=== PATIENT | female | born 1940 | race Caucasian/White ===

== ENCOUNTER 2020-03-05 16:50 | Inpatient (IN) | payer MEDICARE, OTHER ==
[~2020-03-05] VITALS: Ht 152.4 cm; Wt 63.2 kg
--- NOTE | 2020-03-05 18:00 | NUR ---
PRODUCTIVE COUGH AND CONGESTION X 1 WEEK. PT AAOX4, VSS. RR EVEN & UNLABORED. DENIES CP, SOB, DIZZINESS, N/V AT THIS TIME. PT SEEN & EVAL'D BY DR. PANDEY. SON @ BS ASSISTING W/ TRANSLATION. PLACED ON REAL ESTATE DIRECTOR, SR. WILL CONT TO MONITOR.
[2020-03-05 18:16] LABS: BASOPHILS % (AUTO) 0.2 % (0.0-2.0); HEMATOCRIT 38 % (33-45); HEMOGLOBIN 12.3 g/dL (11.5-14.8); LYMPHOCYTES # (AUTO) 1.4 /CMM (0.8-4.8); LYMPHOCYTES % (AUTO) 21.6 % (20.0-44.0); MEAN CORPUSCULAR HGB CONC 32 g/dl (31.0-36.0); MEAN CORPUSCULAR VOLUME 94 fL (82-100); MONOCYTES # (AUTO) 0.5 /CMM (0.1-1.30); MONOCYTES % (AUTO) 7.3 % (2.0-12.0); NEUTROPHILS # (AUTO) 4.6 /CMM (1.8-8.9); NEUTROPHILS % (AUTO) 70.9 % (43.0-81.0); PLATELET COUNT (AUTO) 226 /CMM (150-450); RED BLOOD CELL COUNT(AUTO) 4.06 MIL/uL (4.0-5.2); WHITE BLOOD COUNT (AUTO) 6.5 K/uL (4.3-11.0)
[2020-03-05 18:25] LABS: CALCIUM, SERUM 9.2 mg/dL (8.5-10.1); CREATININE 0.8 mg/dL (0.6-1.3); POTASSIUM 4.7 mmol/L (3.5-5.1)
[2020-03-05] MEDS ORDERED: AZITHROMYCIN 500 MG in IV D5W 250 ML IV ONE (18:30)
[2020-03-05] MEDS ORDERED: CEFTRIAXONE 1 G in IV D5W 50 ML IV ONE (18:30)
[2020-03-05] MEDS ORDERED: ESCI20TA PO (18:39)
[2020-03-05] MEDS ORDERED: OMEG1CAP PO (18:39)
[2020-03-05] MEDS ORDERED: ATOR80TA PO (18:39)
[2020-03-05] MEDS ORDERED: OLME20TA23 PO (18:39)
[2020-03-05] MEDS ORDERED: ALEN70TA6 PO (18:39)
[2020-03-05] MEDS ORDERED: LOSA100T31 PO (18:39)
[2020-03-05] MEDS ORDERED: ASPI-1420 PO (18:39)
[2020-03-05] MEDS ORDERED: AMLO2.5T4 PO (18:39)
[2020-03-05] MEDS ORDERED: METF-440 PO (18:39)
--- NOTE | 2020-03-05 19:18 | NUR ---
positive covid result per lab
[2020-03-05] MEDS ORDERED: CEFTRIAXONE 1GM BAG (ER ONLY) 50 ML IV ONE (19:28)
--- NOTE | 2020-03-05 19:38 | NUR ---
MEDICATED PER ERMD ORDER, PT SHEILA WELL.
--- NOTE | 2020-03-05 20:26 | NUR ---
REPORT GIVEN TO SHIVA CRYSTAL FOR ZEYNEP.
[2020-03-05] MEDS ORDERED: HYDROCODONE/APAP 5/325MG TABLET PO PRN (20:30)
[2020-03-05] MEDS ORDERED: MAGNESIUM HYDROXIDE 30 ML UDC PO PRN (20:30)
[2020-03-05] MEDS ORDERED: ZOLPIDEM TARTRATE 5 MG TABLET PO PRN (20:30)
[2020-03-05] MEDS ORDERED: ONDANSETRON HCL/PF 4 MG/2 ML VIAL IVP PRN (20:30)
[2020-03-05] MEDS ORDERED: Z GUARD REMEDY 2 OZ OINT TP PRN (20:30)
[2020-03-05] MEDS ORDERED: MAG HYDROX/AL HYDROX/SIMETH 30 ML UDC PO PRN (20:30)
[2020-03-05] MEDS ORDERED: DEXTROSE 50%-WATER 50 ML DISP.SYRIN IV PRN (20:30)
[2020-03-05 21:12] VITALS: BP 143/59
--- NOTE | 2020-03-05 21:12 | NUR ---
DETAILER NOTES Received patient from ER accompanied by 2 ER staff. Admitted to Tele 203-1 due to COVID 19 under the service of Dr. Faith. Transferred to bed comfortably. Admission routine done. Patient preferred to keep on personal clothing over pt's gown. Pt noted ambulatory with steady gait. With peripheral IV line RAC #20, SL. Pt denies any discomfort at this time. Provided snacks per request. Admission orders noted and carried out. Kept on bed clean, dry and comfortable. Call light within easy reach. On tele monitor with NSR noted. Will continue to monitor accordingly.
[2020-03-05] MEDS: ATORVASTATIN 40 MG TABLET PO SCH (21:56)
[2020-03-05] MEDS: AMLODIPINE BESYLATE 2.5 MG TABLET PO SCH (21:57)
[2020-03-05] MEDS: ASPIRIN EC 81 MG TABLET.DR PO SCH (22:00)
[2020-03-05] MEDS: LOSARTAN POTASSIUM 50 MG TABLET PO SCH (22:01)
[2020-03-05] MEDS: INSULIN REGULAR, HUMAN 100 UNIT/ML 3 ML VIAL SQ PRN (22:05)
[2020-03-05] MEDS: ENOXAPARIN SODIUM 40 MG/0.4 ML DISP.SYRIN SQ SCH (22:06)
[2020-03-05] MEDS: BLOOD SUGAR DIAGNOSTIC 1 EACH STRIP IN SCH (22:06)
[2020-03-06] VITALS: BP 154/74
[2020-03-06 01:04] VITALS: BP 154/74
[2020-03-06 04:00] VITALS: BP 136/66
[2020-03-06 04:25] VITALS: BP 136/66
[2020-03-06] MEDS: BLOOD SUGAR DIAGNOSTIC 1 EACH STRIP IN SCH ×4 (06:46→21:25)
--- NOTE | 2020-03-06 06:51 | NUR ---
RN CLOSING NOTES Pt on bed. No new complaints made. All nursing needs attended. Due meds given as ordered. NSR on tele monitor. Kept on bed clean, dry and comfortable. Call light within easy reach. Endorsed.
--- NOTE | 2020-03-06 07:20 | NUR ---
MS RN NOTES PATIENT IN BED ALERT ORIENTED X 3. NO ACUTE DISTRESS NOTED. BREATHING UNLABORED. NO SOB NOTED. IV ACCESS PATENT AND INTACT, NO REDNESS, NO BLEEDING, NO SWELLING NOTED. SAFETY MEASURES IN PLACE, CALL LIGHT WITHIN REACH. WILL CONTINUE TO MONITOR ACCORDINGLY.
[2020-03-06 07:58] LABS: HEMATOCRIT 36 % (33-45); HEMOGLOBIN 11.8 g/dL (11.5-14.8); LYMPHOCYTES # (AUTO) 1.8 /CMM (0.8-4.8); LYMPHOCYTES % (AUTO) 30.5 % (20.0-44.0); MEAN CORPUSCULAR HGB CONC 33 g/dl (31.0-36.0); MEAN CORPUSCULAR VOLUME 93 fL (82-100); MONOCYTES # (AUTO) 0.5 /CMM (0.1-1.30); MONOCYTES % (AUTO) 9.2 % (2.0-12.0); NEUTROPHILS # (AUTO) 3.5 /CMM (1.8-8.9); NEUTROPHILS % (AUTO) 60.3 % (43.0-81.0); PLATELET COUNT (AUTO) 220 /CMM (150-450); WHITE BLOOD COUNT (AUTO) 5.7 K/uL (4.3-11.0)
[2020-03-06 08:00] VITALS: BP 126/75
[2020-03-06 08:48] LABS: CALCIUM, SERUM 8.9 mg/dL (8.5-10.1); CREATININE 0.7 mg/dL (0.6-1.3); MAGNESIUM 2.2 mg/dL (1.8-2.4); PHOSPHORUS 3.3 mg/dL (2.5-4.9)
[2020-03-06 08:52] LABS: THYROID STIMULATING HORMONE 0.747 uIU/mL (0.358-3.74)
[2020-03-06] MEDS: LOSARTAN POTASSIUM 50 MG TABLET PO SCH (09:26)
[2020-03-06] MEDS: ZINC SULFATE 220 MG CAPSULE PO SCH (09:27)
[2020-03-06] MEDS: ASPIRIN EC 81 MG TABLET.DR PO SCH (09:27)
[2020-03-06] MEDS: AMLODIPINE BESYLATE 2.5 MG TABLET PO SCH (09:27)
[2020-03-06] MEDS: ESCITALOPRAM OXALATE (10 MG) 10 MG TABLET PO SCH (09:27)
[2020-03-06] MEDS: ASCORBIC ACID 500 MG TABLET PO SCH (09:27)
[2020-03-06] MEDS: METFORMIN 500 MG TABLET PO SCH (09:27)
[2020-03-06] MEDS: CHOLECALCIFEROL 1,000 UNIT TABLET (VIT D3) PO SCH (09:27)
[2020-03-06] MEDS: ACETAMINOPHEN 325 MG TABLET PO PRN ×2 (16:23→21:08)
[2020-03-06] MEDS: INSULIN REGULAR, HUMAN 100 UNIT/ML 3 ML VIAL SQ PRN ×2 (17:14→21:18)
--- NOTE | 2020-03-06 19:00 | NUR ---
MS RN NOTES PATIENT IN BED ALERT ORIENTED X 3 . NO ACUTE DISTRESS NOTED. BREATHING UNLABORED. NO SOB NOTED. IV ACCESS PATENT AND INTACT, NO REDNESS, NO BLEEDING, NO SWELLING NOTED. NEEDS ATTENDED AND ANTICIPATED. SAFETY MEASURES IN PLACE. CALL LIGHT WITHIN REACH. WILL ENDORSE TO NIGHT NURSE FOR CONTINUITY OF CARE.
--- NOTE | 2020-03-06 19:44 | NUR ---
RN OPENING NOTES PATIENT RECEIVED RESTING IN BED A/O X 4. STABLE ON RA WITH BREATHING EVEN AND UNLABORED, NO SOB NOTED. NO SIGNS OF ACUTE DISTRESS. NO COMPLAINTS OF PAIN OR DISCOMFORT. NO SIGNS OF ACUTE DISTRESS. NO COMPLAINTS OF PAIN OR DISCOMFORT. IV LOCATED ON R AC #20 SL. SAFETY PRECAUTIONS IN PLACE WITH BED IN LOWEST POSITION, CALL LIGHT WITHIN REACH, BREAKS ON, SIDE RAILS UP. WILL CONTINUE TO MONITOR THROUGHOUT THE NIGHT.
[2020-03-06 20:00] VITALS: BP 114/71
[2020-03-06] MEDS: ATORVASTATIN 40 MG TABLET PO SCH (21:08)
[2020-03-06] MEDS: ENOXAPARIN SODIUM 40 MG/0.4 ML DISP.SYRIN SQ SCH (21:12)
[2020-03-07] VITALS: BP 118/61
[2020-03-07 04:00] VITALS: BP 114/60
[2020-03-07] MEDS: BLOOD SUGAR DIAGNOSTIC 1 EACH STRIP IN SCH ×4 (06:43→21:49)
--- NOTE | 2020-03-07 06:54 | NUR ---
RN CLOSING NOTES PATIENT RESTING IN BED A/O X 4. STABLE ON RA WITH BREATHING EVEN AND UNLABORED, NO SOB NOTED. NO SIGNS OF ACUTE DISTRESS. NO COMPLAINTS OF PAIN OR DISCOMFORT. NO SIGNS OF ACUTE DISTRESS. NO COMPLAINTS OF PAIN OR DISCOMFORT. IV LOCATED ON R AC #20 SL. SAFETY PRECAUTIONS IN PLACE WITH BED IN LOWEST POSITION, CALL LIGHT WITHIN REACH, BREAKS ON, SIDE RAILS UP. ALL NEEDS ATTENDED TO. WILL ENDORSE TO ONCOMING SHIFT ABOUT ZEYNEP.
--- NOTE | 2020-03-07 08:00 | NUR ---
MEDICAL LEADER OPENING NOTES PATIENT RECEIVED RESTING IN BED A/O X 4. NSR ON TELE MONITOR. STABLE ON RA WITH BREATHING EVEN AND UNLABORED, NO SOB NOTED. NO SIGNS OF ACUTE DISTRESS. NO COMPLAINTS OF PAIN OR DISCOMFORT. NO SIGNS OF ACUTE DISTRESS. IV LOCATED ON AC #20 SL. SAFETY PRECAUTIONS IN PLACE WITH BED IN LOWEST POSITION, CALL LIGHT WITHIN REACH, BREAKS ON, SIDE RAILS UP. WILL CONTINUE TO MONITOR
[2020-03-07] MEDS: ACETAMINOPHEN 325 MG TABLET PO PRN ×2 (09:20→19:14)
[2020-03-07] MEDS: ASPIRIN EC 81 MG TABLET.DR PO SCH (09:21)
[2020-03-07] MEDS: AMLODIPINE BESYLATE 2.5 MG TABLET PO SCH (09:21)
[2020-03-07] MEDS: ZINC SULFATE 220 MG CAPSULE PO SCH (09:21)
[2020-03-07] MEDS: METFORMIN 500 MG TABLET PO SCH (09:21)
[2020-03-07] MEDS: LOSARTAN POTASSIUM 50 MG TABLET PO SCH (09:21)
[2020-03-07] MEDS: CHOLECALCIFEROL 1,000 UNIT TABLET (VIT D3) PO SCH (09:21)
[2020-03-07] MEDS: ESCITALOPRAM OXALATE (10 MG) 10 MG TABLET PO SCH (09:22)
[2020-03-07] MEDS: ASCORBIC ACID 500 MG TABLET PO SCH (10:35)
--- NOTE | 2020-03-07 14:24 | NUR ---
CLARIFIED WITH ELDON NICHOLAS IF WE STILL NEED TO CONTINUE PT ON TELE. ELDON NICHOLAS ORDERED TO DC TELEMETRY AND CARRIED OUT.
--- NOTE | 2020-03-07 17:57 | NUR ---
PT RESTING IN BED WITH NO C/O PAIN OR DISTRESS. PT WAS MOVED TO ROOM 205-2.CALL LIGHT PLACED WITHIN REACH.
--- NOTE | 2020-03-07 18:30 | NUR ---
PT RESTING IN BED DENYING ANY DISTRESS AND NO C/O NAUSEA AND NO VOMITING EPISODE.HEADACHE AND NAUSEA WERE RELIEVED WITH ZOFRAN AND TYLENOL.
[2020-03-07 20:00] VITALS: BP 123/68
--- NOTE | 2020-03-07 20:30 | NUR ---
RN NOTES: COVID POSITIVE, PPE UTILIZED, WITH N95 AND FACE SHIELD.
[2020-03-07 20:33] VITALS: BP 123/68
--- NOTE | 2020-03-07 21:10 | NUR ---
ETCHER ELECTROLYTIC: RECEIVED REPORT FROM MEG Agarwal PT IN BED, AWAKE, A/O X4, CONGOLESE SPEAKING, ON RA RESPIRATIONS EVEN AND UNLABORED. PT RECEIVED TYLENOL AT 1914, LATEST TEMP 99.2COOLING MEASURES PROVIDED. RIGHT AC G 20 PATENT AND FLUSHING WELL, ON HL. PT OFF ATB, ON DEXAMETHASONE TREATMENT. SAFETY PRECAUTIONS FOR FALL INITIATED, CALL LIGHT IN REACH, WILL CONTINUE MONITORING PT.
[2020-03-07] MEDS: ATORVASTATIN 40 MG TABLET PO SCH (21:47)
[2020-03-07] MEDS: ENOXAPARIN SODIUM 40 MG/0.4 ML DISP.SYRIN SQ SCH (21:48)
[2020-03-07] MEDS: INSULIN REGULAR, HUMAN 100 UNIT/ML 3 ML VIAL SQ PRN (21:49)
--- NOTE | 2020-03-07 21:49 | NUR ---
accu check 124: no insulin coverage given per sliding scale, bs 124. all due meds administered to pt at this time.
--- NOTE | 2020-03-07 22:26 | NUR ---
rn notes: continue cooling measures. last tylenol administered 1913.
--- NOTE | 2020-03-08 00:38 | NUR ---
rn notes: notified [facility] md hospitalist, pt admitted on 03/05 rapid covid result is positive, no pcr covid test order, awaiting md to call back
--- NOTE | 2020-03-08 01:13 | NUR ---
RN NOTES: RECEIVED CALL BACK FROM [facility]OSPITALIST, RELAYED ABOUT PT BEING POSITIVE COVID VIA RAPID COVID ANTIGEN TESTING, NO COVID PCR ORDER, PER MD THERE IS NO RULE THAT WE NEED TO DO BOTH. RELAYED TO SHIVA PEDROZA, RECOMMENDS TO ASK DAY [facility] TO FOLLOW UP.
[2020-03-08 04:00] VITALS: BP 118/77
[2020-03-08] MEDS: BLOOD SUGAR DIAGNOSTIC 1 EACH STRIP IN SCH ×4 (06:35→21:43)
[2020-03-08] MEDS: INSULIN REGULAR, HUMAN 100 UNIT/ML 3 ML VIAL SQ PRN ×2 (06:36→12:35)
--- NOTE | 2020-03-08 06:36 | NUR ---
accu check 110: blood sugar check performed and result is 110. no insulin coverage given per sliding scale.
--- NOTE | 2020-03-08 07:05 | NUR ---
END OF SHIFT REPORT: PT REMAINS A/O X4, ON RA RESPIRATIONS EVEN AND UNLABORED. DENIES ANY PAIN OR DISCOMFORT. IV ACCESS REMAINS PATENT AND FLUSHING WELL, ON HL. NO S/S OF IV INFILTRATION NOTED. DC PLANNING WHEN CLEARED BY ID AND PULMO. VS REMAINS STABLE, NEEDS ATTENDED. SAFETY PRECAUTIONS FOR FALL INITIATED, CALL LIGHT IN REACH, WILL ENDORSE TO DAY RN FOR CONTINUITY OF CARE.
--- NOTE | 2020-03-08 08:00 | NUR ---
MS RN OPENING NOTES Received Patient resting in bed. A/O x 4, Stateless speaking. VS stable with no acute distress. Breathing even and unlabored on room air with no respiratory distress. Denies pain. No signs and symptoms of pain. 20g PIV on RAC clean, intact, patent and flushing well. Safety precautions in place. Bed locked and set to lowest position with side rails x 2 up. All needs rendered at this time. Call light within reach. Will continue to monitor.
[2020-03-08 08:44] VITALS: BP 116/71
[2020-03-08] MEDS: ASPIRIN EC 81 MG TABLET.DR PO SCH (09:08)
[2020-03-08] MEDS: METFORMIN 500 MG TABLET PO SCH (09:09)
[2020-03-08] MEDS: ASCORBIC ACID 500 MG TABLET PO SCH (09:09)
[2020-03-08] MEDS: ESCITALOPRAM OXALATE (10 MG) 10 MG TABLET PO SCH (09:09)
[2020-03-08] MEDS: AMLODIPINE BESYLATE 2.5 MG TABLET PO SCH (09:09)
[2020-03-08] MEDS: LOSARTAN POTASSIUM 50 MG TABLET PO SCH (09:09)
[2020-03-08] MEDS: ZINC SULFATE 220 MG CAPSULE PO SCH (09:09)
[2020-03-08] MEDS: CHOLECALCIFEROL 1,000 UNIT TABLET (VIT D3) PO SCH (09:09)
[2020-03-08] MEDS: ACETAMINOPHEN 325 MG TABLET PO PRN ×2 (09:12→21:46)
[2020-03-08 17:16] VITALS: BP 107/60
--- NOTE | 2020-03-08 18:57 | NUR ---
MS RN NOTES Per Mic TELECOMMUNICATION EQUIPMENT REPAIRER, may order Covid PCR. Order noted and carried out. Will endorse to oncoming shift.
--- NOTE | 2020-03-08 19:34 | NUR ---
MS RN CLOSING NOTES Patient resting in bed. A/O x 4, Norwegian speaking. VS stable with no acute distress. Breathing even and unlabored on room air with no respiratory distress. Denies pain. No signs and symptoms of pain. 20g PIV on RAC clean, intact, patent and flushing well. Safety precautions in place. Bed locked and set to lowest position with side rails x 2 up. All needs rendered at this time. Call light within reach. Will endorse plan of care to oncoming shift.
[2020-03-08 20:00] VITALS: BP 118/55
--- NOTE | 2020-03-08 20:27 | NUR ---
MS2/RN DURING INITIAL SHIFT ROUNDING, PATIENT WAS IN ROOM, ON BED AWAKE, ALERT, ORIENTED, COMFORTABLE, NO C/O PAIN, NO SIGNS OF DISTRESS NOTED, CALL LIGHT IN REACH. PER PATIENT SHE CAN WALK GOOD AND REFUSED BED ALARM. WILL MONITOR.
[2020-03-08] MEDS: ATORVASTATIN 40 MG TABLET PO SCH (21:35)
[2020-03-08] MEDS: ENOXAPARIN SODIUM 40 MG/0.4 ML DISP.SYRIN SQ SCH (21:37)
--- NOTE | 2020-03-09 00:53 | NUR ---
MS2 PATIENT IS SLEEPING AT THIS TIME, APPEAR COMFORTABLE, NO SIGNS OF DISTRESS NOTED, CALL LIGHT IN REACH, WILL CONTINUE TO MONITOR.
--- NOTE | 2020-03-09 05:51 | NUR ---
MS2/RN COVID 19 PCR TEST SPECIMEN OBTAINED AND AND BROUGHT TO LAB BY NETTE JACKSON.
[2020-03-09] MEDS: BLOOD SUGAR DIAGNOSTIC 1 EACH STRIP IN SCH ×4 (06:49→21:27)
[2020-03-09] MEDS ORDERED: ALENDRONATE 70 MG TABLET PO SCH (07:30)
--- NOTE | 2020-03-09 07:40 | NUR ---
RN NOTES RECEIVED PATIENT IN BED RESTING COMFORTABLY IN MODERATE HIGH BACK REST. A/O X4. RA, TOLERATING WELL. IV ACCESS ON RAC #20, PATENT AND INTACT. SAFETY PRECAUTION IN PLACE. BED IN LOWEST LOCKED POSITION, SIDE RAILS UP X 2, CALL LIGHT WITHIN REACH. WILL CONTINUE TO MONITOR.
[2020-03-09 07:59] LABS: BASOPHILS % (AUTO) 0.1 % (0.0-2.0); HEMATOCRIT 36 % (33-45); HEMOGLOBIN 11.6 g/dL (11.5-14.8); LYMPHOCYTES # (AUTO) 1.3 /CMM (0.8-4.8); LYMPHOCYTES % (AUTO) 19.7 % (20.0-44.0); MEAN CORPUSCULAR HGB CONC 33 g/dl (31.0-36.0); MEAN CORPUSCULAR VOLUME 93 fL (82-100); MONOCYTES # (AUTO) 0.7 /CMM (0.1-1.30); MONOCYTES % (AUTO) 10.6 % (2.0-12.0); NEUTROPHILS # (AUTO) 4.5 /CMM (1.8-8.9); NEUTROPHILS % (AUTO) 69.6 % (43.0-81.0); PLATELET COUNT (AUTO) 255 /CMM (150-450); RED BLOOD CELL COUNT(AUTO) 3.85 MIL/uL (4.0-5.2); WHITE BLOOD COUNT (AUTO) 6.5 K/uL (4.3-11.0)
[2020-03-09 08:05] LABS: CALCIUM, SERUM 8.4 mg/dL (8.5-10.1); CREATININE 0.8 mg/dL (0.6-1.3); POTASSIUM 4.1 mmol/L (3.5-5.1)
[2020-03-09 08:12] LABS: C-REACTIVE PROTEIN 9.6 mg/dL (0.0-0.9)
[2020-03-09] MEDS: AMLODIPINE BESYLATE 2.5 MG TABLET PO SCH (09:02)
[2020-03-09] MEDS: ZINC SULFATE 220 MG CAPSULE PO SCH (09:02)
[2020-03-09] MEDS: CHOLECALCIFEROL 1,000 UNIT TABLET (VIT D3) PO SCH (09:02)
[2020-03-09] MEDS: ESCITALOPRAM OXALATE (10 MG) 10 MG TABLET PO SCH (09:02)
[2020-03-09] MEDS: ASPIRIN EC 81 MG TABLET.DR PO SCH (09:03)
[2020-03-09] MEDS: METFORMIN 500 MG TABLET PO SCH (09:03)
[2020-03-09] MEDS: ASCORBIC ACID 500 MG TABLET PO SCH (09:03)
[2020-03-09] MEDS: LOSARTAN POTASSIUM 50 MG TABLET PO SCH (09:03)
[2020-03-09] MEDS ORDERED: BISACODYL SUPP (10 MG) 10 MG/SUPP.RECT SUPP.RECT RC ONE (11:30)
[2020-03-09] MEDS: DOCUSATE SODIUM LIQ 100 MG/10 ML UDC NG SCH (11:38)
--- NOTE | 2020-03-09 18:50 | NUR ---
RN NOTES PATIENT IN BED RESTING COMFORTABLY IN MODERATE HIGH BACK REST. A/O X4. RA, TOLERATING WELL. NO IV ACCESS, REFUSED AT THIS TIME, PER PATIENT TO DO IT LATER. SAFETY PRECAUTION IN PLACE. BED IN LOWEST LOCKED POSITION, SIDE RAILS UP X 2, CALL LIGHT WITHIN REACH. WILL ENDORSE TO ACIDITY TESTER NURSE FOR ZEYNEP.
--- NOTE | 2020-03-09 19:45 | NUR ---
MS RN OPENING NOTES RECEIVED PATIENT RESTING IN BED COMFORTABLY; A/OX4, SAMI SPEAKING; AMBULATORY WITH ASSIST; BREATHING EVEN AND UNLABORED; TOLERATING ROOM AIR WELL; NO SOB NOTED AT THIS TIME; ISOLATION PRECAUTIONS MAINTAINED; PER AM SHIFT, PATIENT REFUSING IV RE-INSERTION AND WOULD LIKE TO JUST TAKE HIS PO MEDS AND SLEEP; MD IS AWARE; SAFETY PRECAUTIONS IMPLEMENTED; BED LOCKED IN LOW POSITION; SIDE RAILSX2; CALL LIGHT WITHIN REACH; WILL CONT TO MONITOR
[2020-03-09 20:00] VITALS: BP 110/68
[2020-03-09] MEDS: ENOXAPARIN SODIUM 40 MG/0.4 ML DISP.SYRIN SQ SCH (21:17)
[2020-03-09] MEDS: ATORVASTATIN 40 MG TABLET PO SCH (21:17)
[2020-03-09] MEDS: INSULIN REGULAR, HUMAN 100 UNIT/ML 3 ML VIAL SQ PRN (21:28)
--- NOTE | 2020-03-10 04:21 | NUR ---
MS RN NOTES IV ACCESS OBTAINED; L WRIST # 22, INTACT AND PATENT; FLUSHING WELL; WILL CONT TO MONITOR
[2020-03-10] MEDS: BLOOD SUGAR DIAGNOSTIC 1 EACH STRIP IN SCH ×3 (06:49→17:30)
[2020-03-10] MEDS: INSULIN REGULAR, HUMAN 100 UNIT/ML 3 ML VIAL SQ PRN (06:50)
--- NOTE | 2020-03-10 06:55 | NUR ---
MS RN CLOSING NOTES PATIENT RESTING IN BED COMFORTABLY; A/OX4, IRISH SPEAKING; ABLE TO MAKE NEEDS KNOWN; PATIENT TOLERATING ROOM AIR WELL, NO SOB NOTED; BREATHING EVEN AND UNLABORED; PATIENT DENIES PAIN; NO DISTRESS NOTED; PATIENT AMBULATORY WITH STEADY GAIT; ISOLATION PRECAUTIONS MAINTAINED; L WRIST # 22 INTACT AND PATENT, FLUSHING WELL; ALL NEEDS RENDERED; SAFETY PRECAUTIONS IMPLEMENTED; WILL ENDORSE ZEYNEP TO COMING SHIFT
--- NOTE | 2020-03-10 07:20 | NUR ---
A/OX4, [place] SPEAKING; AMBULATORY WITH ASSIST; BREATHING EVEN AND UNLABORED; TOLERATING ROOM AIR WELL; NO SOB NOTED AT THIS TIME; ISOLATION PRECAUTIONS MAINTAINED; PER AM SHIFT, PATIENT REFUSING IV RE-INSERTION AND WOULD LIKE TO JUST TAKE HIS PO MEDS AND SLEEP; MD IS AWARE; SAFETY PRECAUTIONS IMPLEMENTED; BED LOCKED IN LOW POSITION; SIDE RAILSX2; CALL LIGHT WITHIN REACH; WILL CONT TO MONITOR
[2020-03-10 08:00] VITALS: BP 125/67
[2020-03-10] MEDS: LOSARTAN POTASSIUM 50 MG TABLET PO SCH (09:28)
[2020-03-10] MEDS: ASCORBIC ACID 500 MG TABLET PO SCH (09:28)
[2020-03-10] MEDS: DOCUSATE SODIUM LIQ 100 MG/10 ML UDC NG SCH (09:28)
[2020-03-10] MEDS: CHOLECALCIFEROL 1,000 UNIT TABLET (VIT D3) PO SCH (09:28)
[2020-03-10] MEDS: ASPIRIN EC 81 MG TABLET.DR PO SCH (09:29)
[2020-03-10] MEDS: ESCITALOPRAM OXALATE (10 MG) 10 MG TABLET PO SCH (09:29)
[2020-03-10] MEDS: AMLODIPINE BESYLATE 2.5 MG TABLET PO SCH (09:29)
[2020-03-10] MEDS: ZINC SULFATE 220 MG CAPSULE PO SCH (09:33)
[2020-03-10] MEDS: METFORMIN 500 MG TABLET PO SCH (09:33)
[2020-03-10] MEDS: ACETAMINOPHEN 325 MG TABLET PO PRN (09:49)
[2020-03-10] MEDS ORDERED: CARBOXYMETHYLCELLULOSE SODIUM 0.4 ML DROPERETTE EACHEYE PRN (11:30)
[2020-03-10 16:00] VITALS: BP 128/61
--- NOTE | 2020-03-10 18:05 | NUR ---
Patient cleared for d/c home by MD/ Patient as awake alert and orientedx4 , Hungarian speaking. VS are stable and within baseline, saturation 99 % on room air, afebrile. Patient is not in distress, and denies pain. D/C instructions provided to pt's granddaughter Bianca, instructed to f/u with 1-2 weeks with Mariposa tolentino. Bianca verbalized understanding. Pt needs to be isolated for 14 days and patient and granddaughter verbalized understanding. D/C instructions also provided printed form in Hungarian. All needs attended prior d/c. Pt skin is intact. D/c instructions and valuable form sighed by pt and all belongings with the patient. IV line and ID wrist band removed. Patient safely transferred to [facility] via wheelchair accompanied by NETTE Muro.
== END 2020-03-11 | disposition home or self-care (01) | DRG 177 ==
LOC: ER 16:50 → TELE2 20:17 → MEDSG2 03-07 15:59
PROVIDERS: ATTEND Nurse Practitioner Acute Care
DX: U07.1 COVID-19 (principal); J12.89 Other viral pneumonia; I10 Essential (primary) hypertension; E78.5 Hyperlipidemia, unspecified; E11.9 Type 2 diabetes mellitus without complications; F32.9 Major depressive disorder, single episode, unspecified; K59.00 Constipation, unspecified; M81.0 Age-related osteoporosis without current pathological fracture; M19.90 Unspecified osteoarthritis, unspecified site
CPT/HCPCS: 36415; 71045-TC; 80048-TC; 80061-TC; 82962-TC; 83735-TC; 84100-TC; 84443-TC; 85025-TC; 85378-TC; 86140-TC; 87040-TC; 87081-TC; 93307-TC; 97116-TC; 97530-TC; C9803-CS; G0378; J0456; J0696; J1650; J1815; J2405; J7060; U0003-CS